=== PATIENT | female | born 1950 | race Caucasian/White ===

== ENCOUNTER 2016-08-17 11:46 | Outpatient (CLI) | payer MEDICARE ==
[2016-08-17 12:04] LABS: BASOPHILS % 0.3 (0.0-1.5); EOSINOPHILS % 3.1 % (0.0-6.8); MEAN CORPUSCULAR HEMOGLOBIN 28.5 pg (28.0-34.0); MEAN CORPUSCULAR VOLUME 89.9 fl (80.0-100.0); MONOCYTES % 5.6 % (0.0-11.0); NEUTROPHILS # 4.2 # k/uL (1.4-7.7)
[2016-08-17 12:16] LABS: APPEARANCE,URINE Cloudy (CLEAR); COLOR,URINE Yellow (YELLOW); OCCULT BLOOD,URINE Trace-intact (NEGATIVE); PH URINE 5.5 (5.0 - 8.0); UROBILINOGEN URINE 0.2 Eu (0.2-1.0)
[2016-08-17 12:23] LABS: AMORPHOUS SEDIMENT,UR FEW (NEGATIVE)
[2016-08-17 12:33] LABS: eGFR (African) > 60; eGFR (Non-African) > 60
== END 2016-08-17 11:47 ==
LOC: LAB 11:46
PROVIDERS: ATTEND Internal Medicine Nephrology
DX: E11.9 Type 2 diabetes mellitus without complications (principal); E78.5 Hyperlipidemia, unspecified; E66.09 Other obesity due to excess calories
CPT/HCPCS: 36415; 80053; 80061; 81002; 82043; 83036; 85025

== ENCOUNTER 2016-08-22 15:40 | Outpatient (CLI) | payer MEDICARE | END 2016-08-22 15:42 | LOC: NEPHRO 15:40 | PROVIDERS: ATTEND Internal Medicine Nephrology | DX: E11.9 Type 2 diabetes mellitus without complications (principal); E66.01 Morbid (severe) obesity due to excess calories; R80.9 Proteinuria, unspecified | CPT/HCPCS: G0463 ==

== ENCOUNTER 2017-04-06 11:29 | Outpatient (CLI) | payer MEDICARE | END 2017-04-06 11:52 | LOC: LAB 11:29 | PROVIDERS: ATTEND Family Medicine | DX: E11.9 Type 2 diabetes mellitus without complications (principal) | CPT/HCPCS: 36415; 83036 ==

== ENCOUNTER 2017-08-23 14:24 | Outpatient (CLI) | payer OTHER ==
[2017-08-23 14:47] LABS: MEAN CORPUSCULAR HEMOGLOBIN 27.6 pg (28.0-34.0); MEAN CORPUSCULAR VOLUME 87.9 fl (80.0-100.0)
[2017-08-23 15:12] LABS: eGFR (African) > 60; eGFR (Non-African) > 60
== END 2017-08-23 14:26 ==
LOC: LAB 14:24
PROVIDERS: ATTEND Family Medicine
DX: E11.9 Type 2 diabetes mellitus without complications (principal); R41.3 Other amnesia; G25.81 Restless legs syndrome
CPT/HCPCS: 36415; 80053; 80061; 82728; 83036; 84443; 85027

== ENCOUNTER 2017-09-04 15:38 | Outpatient (CLI) | payer OTHER | END 2017-09-04 15:40 | LOC: NEPHRO 15:38 | PROVIDERS: ATTEND Internal Medicine Nephrology | DX: E11.9 Type 2 diabetes mellitus without complications (principal); I10 Essential (primary) hypertension | CPT/HCPCS: G0463 ==

== ENCOUNTER 2018-04-09 14:59 | Outpatient (CLI) | payer OTHER | END 2018-04-09 15:04 | disposition home or self-care (01) | LOC: NEPHRO 14:59 | PROVIDERS: ATTEND Internal Medicine Nephrology | DX: I10 Essential (primary) hypertension (principal); E11.9 Type 2 diabetes mellitus without complications; Z79.4 Long term (current) use of insulin; E66.01 Morbid (severe) obesity due to excess calories | CPT/HCPCS: G0463 ==